=== PATIENT | male | born 1935 | race African-American/Black ===

== ENCOUNTER 2018-06-19 12:15 | Outpatient (CLI) | payer MEDICARE ==
--- NOTE | 2018-06-19 12:53 | RAD ---
LEFT HIP TWO VIEWS: HISTORY: Hip pain. Lumbar stenosis. FINDINGS: Mild degenerative change at the hip. Mild spurring from the femoral head. No fracture or acute abno rmality. IMPRESSION: Mild degenerative change, left hip. POS: [facility]
--- NOTE | 2018-06-19 14:44 | MRI ---
MRI LUMBAR SPINE WITHOUT IV CONTRAST: HISTORY: Left hip pain radiating down to knees for two weeks. TECHNIQUE: Multiplanar, multisequence MRI examination of the lumbar spine is performed. FINDINGS: There are bilateral T2 hyperintense, T1 hypointense foci of the kidneys, up to 3.8 cm on the left and 5.1 cm on the right, statistically renal cysts. Consider follow-up ultrasound in this regard. Generalized disk desiccation changes with ligament and facet hypertrophic changes. Very disk osteophytosis at T12-L1 with very mild central canal and lateral recess narrowing. Very mild lateral recess stenosis at L1-L2. Moderate later recess and mild central canal stenosis at L2-L3 with some mild bilateral foraminal fanta nosis. At L3-L4, moderate central canal and lateral recess stenosis and bilateral foraminal stenosis. At L4-L5, grade 1, 0.9 cm anterolisthesis of L4 on L5, with severe central canal and lateral recess s tenosis, and bilateral foraminal stenosis, as well as what appears to be some superiorly extending fo juan disk extrusion in the left paracentral region, in addition to the overall canal stenosis. At L5-S1, severe disk osteophytosis changes with moderate to severe bilateral foraminal stenosis and mild lateral recess stenosis, with some grade 1, type I endplate changes, in addition to chronic endp late changes. IMPRESSION: 1. Grade 1 anterolisthesis of L4 on L5 with severe central canal, lateral recess, and foraminal sten osis, as well as a focal, superiorly extending, extruded disk herniation in the left paracentral andrey on, with additional compressive changes of the left-sided ventral thecal sac. Bilateral recess steno sis at L5-S1 with some grade 1 endplate changes. 2. Mild to moderate lateral recess, central canal, and foraminal stenosis, at L2-L3 and L3-L4, with very mild changes at T12-L1 and at L1-L2. 3. Bilateral renal T2 hyperintense, T1 hypointense nodular foci, as above, statistically renal cysts . POS: [facility]
== END 2018-06-19 12:16 | disposition home or self-care (01) ==
LOC: SCSMRI 12:15
PROVIDERS: ATTEND Orthopaedic Surgery
DX: M48.061 Spinal stenosis, lumbar region without neurogenic claudication (principal); M16.12 Unilateral primary osteoarthritis, left hip; M43.16 Spondylolisthesis, lumbar region; M51.26 Other intervertebral disc displacement, lumbar region; M48.07 Spinal stenosis, lumbosacral region
CPT/HCPCS: 72148

== ENCOUNTER 2020-02-29 16:59 | Inpatient (IN) | payer MEDICARE ==
--- NOTE | 2020-02-29 18:33 | PDOC.HHP ---
Hospitalist HPI - History of Present Illness History of Present Illness: ADMISSION DATE: 02/29/2020 TIME OF ASSESSMENT: 184 PRIMARY CARE PHYSICIAN: Aman CHIEF COMPLAINT: Confusion, slurred speech HPI: Patient is a very pleasantly confused 84-year-old male with past medical history significant for TIAs, UTIs diabetes, and hypertension. History and HPI obtained from patient's sister as patient is only oriented to person at this time with severe slurred speech. His sister states that a week ago on [place] he had a "episode". He had some confusion and his "mouth twisted". This resolved on its own and so he was not brought into the ER for evaluation at that time. Patient normally able to ambulate without assistance and complete his ADLs but the past 2 days have become more difficult he said to use a walker and a wheelchair today. It required 2 people to assist him to get into the car this morning. They also report that he is had more lip smacking frequently and that his speech would be nonsensical at times and also slurred over the past 2 days. This morning the patient had 2 falls at home one at 3 AM and one at 11 AM. With the first fall this morning they felt he may have had a seizure as his eyes rolled back and he became stiff. They deny him reporting chest pain, shortness of breath, GI or symptoms, contact with sick persons, fever. She does state that he has a history of UTIs which have caused him to hallucinate in the past. Two days ago he also had increased confusion but that resolved before they could bring him to the ER. ED COURSE: Vital Signs: Blood pressure 177/123, pulse 77, respiratory rate 18, temp 98.2 oral, no pain, 95% room air Patient was transferred from [facility]. Over there he had completed a lumbar spine CT, chest x-ray, brain CT, EKG, lab work. Prior to transfer he was also given aspirin 325 milligrams. In the [place] ER a troponin was drawn and no new medications were given. PAST MEDICAL HISTORY: Possible Parkinson's, diabetes mellitus type 2, hypertension, arthritis, anemia PAST SURGICAL HISTORY: No surgical history SOCIAL HISTORY: Patient lives at home with his sister and niece. No alcohol, drug, tobacco use. FAMILY HISTORY: Diabetes mellitus type 2, hypertension ALLERGIES: No known drug allergies CURRENT MEDICATIONS: Lisinopril 20 mg 2 times a day Gabapentin 100 mg once a day at night Pepcid 20 mg once a day Fluoxetine 20 mg twice a day Metformin 500 mg Multivitamin Hospitalist ROS - Review of Systems ROS unobtainable: due to mental status - Exam General Appearance: NAD, awake alert Eye: PERRL ENT - other findings: Abrasion to bridge of nose Neck: supple Heart: RRR, no murmur, no gallops, no rubs, normal peripheral pulses Respiratory: CTAB, no wheezes, no rales, no ronchi, normal chest expansion Gastrointestinal: soft, non-tender, non-distended, normal bowel sounds, no palpable masses Extremities - other findings: Patient not following commands to assess strength Neurological - other findings: Severe dysarthria, minor facial paralysis Musculoskeletal: no muscle wasting Psychiatric: oriented to person Hospitalist Results - Labs Lab results: Troponin I 0.026 ng/mL (< 0.028) 02/29/20 17:47 Laboratory Tests 02/29/20 02/29/20 02/29/20 13:03 13:07 13:07 WBC RBC Hgb Hct Sodium 139 Potassium 3.5 Chloride 101 Carbon Dioxide 25 Anion Gap 17 BUN 26 H Creatinine 1.48 H Estimated GFR (MDRD) 55 Glucose 171 H POC Glucose 158 H Calcium 9.1 Total Bilirubin 0.7 AST 17 ALT 14 Alkaline Phosphatase 46 Troponin I 0.018 Serum Total Protein 7.1 Albumin 3.8 Globulin 3.3 Albumin/Globulin Ratio 1.2 TSH 3rd Generation 02/29/20 02/29/20 02/29/20 13:07 13:07 17:47 WBC 4.8 RBC 3.62 L Hgb 10.4 L Hct 32.0 L Sodium Potassium Chloride Carbon Dioxide Anion Gap BUN Creatinine Estimated GFR (MDRD) Glucose POC Glucose Calcium Total Bilirubin AST ALT Alkaline Phosphatase Troponin I 0.026 Serum Total Protein Albumin Globulin Albumin/Globulin Ratio TSH 3rd Generation 0.4018 - EKG Interpretation EKG: Sinus rhythm with PAC, complete right bundle branch blocknot new 92 bpm - Radiology Interpretation Chest x-ray Status: image reviewed by me, report reviewed by me Additional Comment: Impression: No abnormalities are demonstrated CT scan - head Status: report reviewed by me Additional Comment: Impression: No mass or bleed or other significant acute intracranial process Stable appearing atrophy and chronic white matter ischemic change Other Status: report reviewed by me Additional Comment: Lumbar spine CT Impression: Burst fracture of the L2 vertebral body with no significant retropulsion or involvement of the posterior elements Severe multilevel degenerative changes Atherosclerosis Hospitalist H&P A/P - Plan Plan: Possible TIA versus CVA Neurochecks every 4 hour with NIH every shift Monitor on telemetry Neurology consultation in a.m. Echo and MRI ordered for tomorrow UA ordered and pendingpatient has history of hallucinations with UTI FLP in a.m. Fall resulting in burst fracture of the L2 LSO brace ordered Discussed with neurosurgery, will see patient tomorrow, recommended brace Strict bedrest until cleared by neurosurgery and has brace No numbness or weakness in extremities noted Acute kidney injury Continue IVF Recheck labs in am to evaluate progress Hypertension Allow for permissive hypertension tonight As needed antihypertensives available if necessary Diabetes mellitus type 2 Accu-Cheks AC at bedtime Mild sliding scale insulin Anemia At baselinetakes iron at home per sister Recheck labs in a.m. VTE prophylaxis in place with SCDs CODE STATUS: Full Surrogate decision-maker is his granddaughter, Dianne Patient and plan of care was discussed with Dr. Medina and GRISELDA Barton with neurosurgery
[2020-02-29] MEDS ORDERED: Labetalol HCl 100 MG/20 ML VIAL SLOW IVP PRN (20:16)
[2020-02-29] MEDS ORDERED: HumaLOG 300 UNITS/3 ML VIAL SC PRN (20:16)
[2020-02-29] MEDS ORDERED: Dextrose 5% in Water 1,000 ML IV PRN (20:16)
[2020-02-29] MEDS ORDERED: hydrALAZINE 20 MG/ML VIAL SLOW IVP PRN (20:16)
[2020-02-29] MEDS ORDERED: Dextrose 50% Abboject 50 ML SYRINGE SLOW IVP PRN (20:16)
[2020-02-29] MEDS: Sodium Chloride 0.9% 1,000 ML IV SCH (22:35)
[2020-02-29] MEDS: Atorvastatin Calcium 40 MG TAB PO SCH (22:35)
[2020-02-29 23:44] VITALS: BMI 27.6
[2020-03-01 01:34] LABS: Bacteria/HPF 3+ HPF (None Seen); Bilirubin Negative (Negative); Blood, Urine Negative (Negative); Clarity Clear (Clear); Glucose, Urine (Dipstick) 70 mg/dL (Negative); Ketone, Urine Trace mg/dL (Negative); Leukocyte 25 Leu/uL (Negative); Mucous/LPF Rare LPF (<2+); Nitrite Negative (Negative); Protein, Urine (Dipstick) 50 mg/dL (Neg-Trace); RBC/HPF 0-3 HPF (0-3); Squamous Epithelial 0-3 HPF (0-3); pH, Urine 5.5 (5.0-9.0)
[2020-03-01 01:35] LABS: Urine Culture Reflex Yes Yes
[2020-03-01] MEDS: cefTRIAXone\\ROCEPHIN 1 GM in Sodium Chloride 0.9% 100 ML IVPB SCH (03:16)
[2020-03-01 04:40] LABS: SARS-CoV-2 MS2 Positive; SARS-CoV-2 N Gene Negative; SARS-CoV-2 S Gene Negative; SARS-CoV-2 by NAA Not Detected (NotDetected); SARS-CoV-2 orf1ab Negative
[2020-03-01 05:32] LABS: #Eosinphils 0.1 thou/uL (0.0-0.7); #Lymphocytes 1.4 thou/uL (1.20-3.40); #Monocytes 0.6 thou/uL (0.11-0.59); #Neutrophils 1.6 thou/uL (1.40-6.50); %Basophils 0.8 % (0.0-1.0); %Eosinophils 1.5 % (0.0-10.0); %Lymphocytes 38.3 % (21.0-51.0); %Monocytes 14.8 % (0.0-10.0); %Neutrophils 44.6 % (42.0-75.0); Mean Corpuscular HGB CONC 31.2 g/dL (32.0-36.0); Mean Corpuscular Hemoglobin 28.2 pg (27.0-31.0); Mean Corpuscular Volume 90.2 fL (78.0-98.0); Mean Platelet Volume 9.1 fL (7.4-10.4); Platelet Count 145 thou/uL (130-400); RBC Distribution Width 13.3 % (11.5-14.5); Red Blood Cell (RBC) Count 3.54 mill/uL (4.70-6.10); White Blood Cell (WBC) Count 3.7 thou/uL (4.8-10.8)
[2020-03-01 05:44] LABS: Anion Gap 14 mmol/L (10-20); BUN (Urea Nitrogen) 23 mg/dL (8.4-25.7); Calc. Creatinine Clearance 72 mL/min (70-130); Calcium 8.7 mg/dL (7.8-10.44); Carbon Dioxide 27 mmol/L (23-31); Cardiac Risk 3.2 (Less than 4.5); Chloride 102 mmol/L (98-107); Cholesterol 181 mg/dl (< 200 Desired); Glucose 132 mg/dL (83-110); HDL Cholesterol 56 mg/dL (>60 Neg Risk); LDL Cholesterol, Calculated 109 mg/dL; Potassium 3.2 mmol/L (3.5-5.1); Sodium 140 mmol/L (136-145); Triglycerides 82 mg/dL (Less than 150)
[2020-03-01] MEDS: Lisinopril 20 MG TAB PO SCH ×2 (08:15→21:27)
[2020-03-01] MEDS: Famotidine 20 MG TAB PO SCH ×2 (08:17→21:26)
--- NOTE | 2020-03-01 08:50 | PRG ---
DATE OF SERVICE: 03/01/2020 I personally interviewed and examined the patient, agreed with documentation of Slade De La Cruz PA-C, dated 03/01/2020. Briefly, King Truong is an 84-year-old gentleman with a history of Parkinson disease with intermittent neurological deficits over the past few days eventually prompting an evaluation in the emergency department. One of the episodes involved a fall and he has some back pain. CT examination of lumbar spine showed an L2 fracture for which we were consulted. Overnight, Mr. Truong is more comfortable, horizontal in bed than he is standing. Complains that his back still hurts. Among the electronically recorded vital signs, I do not see any fevers. Blood pressures have been high in the 170s to 180s with systolics in the 80s to 90s. On examination, Mr. Truong has some dysarthria. He has decreased motion of the facial muscles and some cogwheeling rigidity in the extremities. I do not find a sensory level. CT examination of the lumbar spine shows a fracture of the L2 vertebrae which is coronally oriented than it is a fracture that happened in compression. This is not a flexion distraction injury like a Chance fracture. The posterior cortex is intact, so I would not call it as a burst fracture. The canal is well preserved. There is a spondylolisthesis that looks chronic lower down causing some significant stenosis. That chronic problem can be addressed as an outpatient. IMPRESSION: 1. Neurological episodes worrisome for ischemic events. 2. History of Parkinson disease. 3. Fall. 4. L2 fracture. Neurosurgery team was consulted for the L2 fracture. It could be managed in a TLSO brace. The brace does not need to be applied when horizontal in bed, but when he is sitting or standing it can help significantly with pain control and speed the healing of the fracture. We will follow up in our Neurosurgery Clinic. Job ID: [id number]
[2020-03-01] MEDS ORDERED: Aspirin 325 mg Enteric Coated Tablet PO SCH (09:00)
[2020-03-01] MEDS ORDERED: FLU VACC QS2020-21(65YR UP)/PF 240 MCG/0.7 ML SYRINGE IM ONE (09:00)
--- NOTE | 2020-03-01 10:08 | CON ---
DATE OF CONSULTATION: 03/01/2020 CHIEF COMPLAINT: Fall, possible seizure. HISTORY OF PRESENT ILLNESS: Mr. Truong is an 84-year-old gentleman with history of Parkinson's, TIA, hypertension, and diabetes. He is a transfer from [place] for stroke evaluation. It is reported that the patient fell due to unsteady gait 2 days ago, witnessed by his niece, and he has become more confused with slurred speech. CT examination of lumbar spine showed a L2 fracture for which Neurosurgery was consulted. Denies bladder or bowel dysfunction. REVIEW OF SYSTEMS: CONSTITUTIONAL: Denies fever or chills. HEENT: Denies change in vision or hearing. CARDIAC: Denies chest pain, shortness of breath, or diaphoresis. PULMONARY: Denies shortness of breath, cough, or hemoptysis. GI: Denies abdominal pain, nausea, vomiting, diarrhea, or change in stool formation and consistency. : Denies trouble with urination, frequency of urination, or bloody urine. SKIN: Denies skin rash, bruising, bleeding, or skin masses. MUSCULOSKELETAL: As per history of present illness. NEUROLOGICAL: As per history of present illness. PSYCHOLOGICAL: As per history of present illness. PAST MEDICAL HISTORY: Type 2 diabetes, hypertension, arthritis, anemia, Parkinson's. PAST SURGICAL HISTORY: None. SOCIAL HISTORY: Denies tobacco use. Denies alcohol use. Denies illicit drug use. FAMILY HISTORY: Diabetes type 2, hypertension. MEDICATIONS: 1. Metformin 500 mg. 2. Fluoxetine 20 mg. 3. Pepcid 20 mg. 4. Gabapentin 100 mg. 5. Lisinopril 20 mg. ALLERGIES: NO KNOWN DRUG ALLERGIES. PHYSICAL EXAMINATION: VITAL SIGNS: Blood pressure 180/86, pulse 78, temperature 98.5. HEENT: Pupils are equal. Extraocular movements are intact. NECK: Soft, supple. No masses are noted. Range of motion is intact and nonpainful. NEUROLOGIC: Awake, alert, oriented. Memory, attention, fund of knowledge normal. Apparently, cranial nerves are grossly intact. Free active range of motion on all extremities. No focal motor weakness. No reflex asymmetry. Unappreciated facial paralysis. Slight dysarthria. IMAGING: CT of the L-spine indicated a L2 fracture without retropulsion and good alignment. ASSESSMENT: History of Parkinson disease, fall, possible seizure, L2 fracture. PLAN: [facility] were called this morning for a TLSO brace. Brace can be applied when horizontal in bed. When he is sitting or standing, the brace can significantly help with his pain control and speedier healing of the fracture. No neurosurgical intervention at this time. We will have him follow up in 2 to 3 weeks in our clinic and repeat the scan prior to the visit. Job ID: [id number] [facility]
[2020-03-01 11:53] LABS: Bacteria/HPF None Seen HPF (None Seen); Bilirubin Negative (Negative); Blood, Urine 3+ (Negative); Clarity Turbid (Clear); Glucose, Urine (Dipstick) Normal (Negative); Ketone, Urine Negative (Negative); Leukocyte Negative Leu/uL (Negative); Nitrite Negative (Negative); Protein, Urine (Dipstick) 70 mg/dL (Neg-Trace); RBC/HPF Greater than 50 HPF (0-3); Specific Gravity, Urine 1.015 (1.002-1.036); Squamous Epithelial None Seen HPF (0-3); Urobilinogen Normal mg/dL (Less than 2); WBC/HPF None Seen HPF (0-3); pH, Urine 5.5 (5.0-9.0)
[2020-03-01 11:56] LABS: Urine Culture Reflex No No
--- NOTE | 2020-03-01 12:04 | MRI ---
MRI brain noncontrast HISTORY: TIA. FINDINGS: There is no evidence of acute intracranial hemorrhage or infarct. Mild diffuse cortical atr ophy and chronic ischemic small vessel disease within the periventricular white matter. There is no mass effect or shift of midline structures. Visualized paranasal sinuses remain well-aerated. IMPRESSION : No acute abnormalities are demonstrated.
[2020-03-01] MEDS: Sodium Chloride 0.9% 1,000 ML IV SCH (12:16)
--- NOTE | 2020-03-01 12:27 | ULT ---
Carotid duplex sonogram HISTORY: Vascular disease. CVA. FINDINGS: Right: Scattered plaque. Color and spectral Doppler evaluation, peak systolic velocity of 70 cm/s, an d IC to CC ratio 0.9 suggest no hemodynamically significant stenosis within the extracranial right ICA. Antegrade flow within the vertebral artery. Left: Atherosclerotic plaque. Color and spectral Doppler evaluation, peak systolic velocity of 83 cm/ s, and IC to CC ratio of 1.1 suggest no hemodynamically significant stenosis within the extra cranial left ICA. Antegrade flow within the vertebral artery. IMPRESSION : Atherosclerosis. No evidence of significant stenosis.
--- NOTE | 2020-03-01 13:22 | CON ---
NEUROLOGY CONSULTATION DATE OF CONSULTATION: 03/01/2020 REASON FOR CONSULTATION: Altered mental status/slurred speech. HISTORY OF PRESENT ILLNESS: Mr. Truong is an 84-year-old male with history significant for prior TIAs, UTI, diabetes, and hypertension, presented to the emergency room with altered mental status and acute onset dysarthria. History was obtained from review of the medical records and also limited history from the patient. Per sister, a week ago during [place], he has an episode of confusion; during which, his mouth was twisted, but resolved on its own and so, she decided not to bring him to the emergency room for further evaluation since he was doing okay. The patient at baseline is able to ambulate without assistance and was able to complete his activities of daily living until the last 2 days and he is becoming more difficult to use the walker and she noticed some lip-smacking, and his speech was unintelligible and slurred over the past few days and he seems to be confused. He also had a fall 2 times at home yesterday, and there was an episode; during which, his eyes rolled back in his head and he became stiff. There was a concern about seizure. He was brought to the [facility] where the chest x-ray, lumbar spine and brain CT was done, which were unremarkable. He was given aspirin and transferred here for further evaluation. PAST MEDICAL HISTORY: Parkinson disease, diabetes mellitus, hypertension, arthritis, and anemia. PAST SURGICAL HISTORY: No significant past surgical history. SOCIAL HISTORY: The patient lives at home with his sister. There is no documented history of alcohol, drug, or tobacco abuse. FAMILY HISTORY: Diabetes and hypertension. ALLERGIES: NO KNOWN DRUG ALLERGIES. CURRENT MEDICATIONS: 1. Lisinopril 20 mg twice daily. 2. Gabapentin 100 mg once a day at night. 3. Pepcid 20 mg once daily. 4. Fluoxetine 20 mg twice a day. 5. Metformin 500 mg. 6. Multivitamin. REVIEW OF SYSTEMS: Unobtainable due to the patient's mental status. PHYSICAL EXAMINATION: VITAL SIGNS: Blood pressure 177/123, pulse 77, respiratory rate 18. General Appearance: NAD, awake alert Eye: PERRL ENT - other findings: Abrasion to bridge of nose Neck: supple Heart: RRR, no murmur, no gallops, no rubs, normal peripheral pulses Respiratory: CTAB, no wheezes, no rales, no ronchi, normal chest expansion Gastrointestinal: soft, non-tender, non-distended, normal bowel sounds, no palpable masses Extremities - other findings: Patient not following commands to assess strength Neurological - Mental status, the patient is alert and oriented to himself and place his hospital. Speech is slurred. Cranial nerves 2 through 12 intact except 9 and 10, dysarthria. Motor; muscle tone and bulk are normal. Moving all 4 extremities equally and symmetrically. Sensory withdraws to nailbed pressure bilaterally. Cerebellar did not cooperate with the testing. Gait deferred due to patient's safety reason. DATA REVIEWED: I reviewed the labs which were essentially unremarkable. Lab results: Troponin I 0.026 ng/mL (< 0.028) 02/29/20 17:47 Laboratory Tests 02/29/20 02/29/20 02/29/20 13:03 13:07 13:07 WBC RBC Hgb Hct Sodium 139 Potassium 3.5 Chloride 101 Carbon Dioxide 25 Anion Gap 17 BUN 26 H Creatinine 1.48 H Estimated GFR (MDRD) 55 Glucose 171 H POC Glucose 158 H Calcium 9.1 Total Bilirubin 0.7 AST 17 ALT 14 Alkaline Phosphatase 46 Troponin I 0.018 Serum Total Protein 7.1 Albumin 3.8 Globulin 3.3 Albumin/Globulin Ratio 1.2 TSH 3rd Generation 02/29/20 02/29/20 02/29/20 13:07 13:07 17:47 WBC 4.8 RBC 3.62 L Hgb 10.4 L Hct 32.0 L Sodium Potassium Chloride Carbon Dioxide Anion Gap BUN Creatinine Estimated GFR (MDRD) Glucose POC Glucose Calcium Total Bilirubin AST ALT Alkaline Phosphatase Troponin I 0.026 Serum Total Protein Albumin Globulin Albumin/Globulin Ratio TSH 3rd Generation 0.4018 - EKG Interpretation EKG: Sinus rhythm with PAC, complete right bundle branch blocknot new 92 bpm - Radiology Interpretation Chest x-ray Status: image reviewed by me, report reviewed by me Additional Comment: Impression: No abnormalities are demonstrated CT scan - head Status: report reviewed by me Additional Comment: Impression: No mass or bleed or other significant acute intracranial process Stable appearing atrophy and chronic white matter ischemic change Other Status: report reviewed by me Additional Comment: Lumbar spine CT Impression: Burst fracture of the L2 vertebral body with no significant retropulsion or involvement of the posterior elements Severe multilevel degenerative changes Atherosclerosis ASSESSMENT AND PLAN: Mr. King Johnson is an 84-year-old male who was admitted because of acute onset slurred speech and confusion with generalized weakness. Altered mental status seems to be multifactorial secondary to infectious etiology. Intracranial process seems less likely since MRI of the brain reviewed, which was negative for acute intracranial pathology. Consider EEG to rule out cortical irritability or evidence of seizure activity. Neuro checks every 4 hours. Strict control of blood pressure and blood glucose. Continue home medications. Further recommendation depend on the results of the testing. Continue medical management per primary team, PT/OT/speech. DVT prophylaxis. We will continue to follow. Thank you for the consult. Job ID: [id number] MTDD
--- NOTE | 2020-03-01 15:04 | PDOC.EEG ---
Neurology EEG Report - Report Report: This EEG was performed using 24 channel [employer] video EEG machine with 24 disc ashley ctrodes. This was an extended 2 hours 5 minutes of inpatient video EEG recording. Digital analysis of the EEG was done for spike and seizure detection which revealed no abnormalities. Background: The posterior background rhythm was not observed Hyperventilation: Not performed. Photic Stimulation: No significant response. Sleep: No stage change is observed. EEG Diagnosis: Generalized irregular theta activity seen during the reording. Clinical Interpretation: This EEG is consistent with moderate generalized nonspecific cerebral dysfunction.
[2020-03-01] MEDS ORDERED: Acetaminophen 325 MG TAB PO PRN (15:23)
--- NOTE | 2020-03-01 18:09 | PDOC.HOSPP ---
- Subjective Encounter Date: 03/01/20 Encounter Time: 17:48 Subjective: Patient up in bed no complaints - Objective Vital Signs & Weight: Vital Signs (12 hours) Temp Pulse Resp BP BP Pulse Ox 03/01/20 15:33 98.4 F 80 16 150/78 H 96 03/01/20 12:00 99 F 82 16 173/84 H 96 03/01/20 08:11 179/86 H 03/01/20 07:50 97.7 F 77 18 179/86 H 96 Weight Weight 204 lb I&O: 02/29/20 03/01/20 03/02/20 06:59 06:59 06:59 Intake Total 1125 Output Total 550 Balance 575 Result Diagrams: 03/01/20 04:29 03/01/20 04:29 Additional Labs: Accuchecks 03/01/20 03/01/20 03/01/20 16:34 10:48 05:01 POC Glucose 167 H 114 H 121 H 02/29/20 21:19 POC Glucose 139 H Hospitalist ROS - Review of Systems Respiratory: denies: cough, dry, shortness of breath, hemoptysis, SOB with exc ertion, pleuritic pain, sputum, wheezing, other Cardiovascular: denies: chest pain, palpitations, orthopnea, paroxysmal noc. dyspnea, edema, light headedness, other Gastrointestinal: denies: nausea, vomiting, abdominal pain, diarrhea, constipation, melena, hematochezia, other - Medication Medications: Active Medications Generic Name Dose Route Start Last Admin Trade Name Freq PRN Reason Stop Dose Admin Atorvastatin Calcium 40 mg 02/29/20 21:00 02/29/20 22:35 Atorvastatin Calcium 40 Mg Tab PO 40 mg HS DEVAN Administration Famotidine 20 mg 03/01/20 09:00 03/01/20 08:17 Famotidine 20 Mg Tab PO 20 mg BID DEVAN Administration Glipizide 10 mg 03/01/20 09:00 03/01/20 08:16 Glipizide Xl 10 Mg Tablet PO 10 mg BID DEVAN Administration Sodium Chloride 1,000 mls @ 75 mls/hr 02/29/20 20:30 03/01/20 12:16 Normal Saline 0.9% IV 1,000 mls .[id number] DEVAN Administration Ceftriaxone Sodium 1 gm/ 100 mls @ 200 mls/hr 03/01/20 02:30 03/01/20 03:16 Sodium Chloride IVPB 100 mls Q24HR DEVAN Administration Lisinopril 20 mg 03/01/20 09:00 03/01/20 08:15 Lisinopril 20 Mg Tab PO 20 mg BID DEVAN Administration - Exam Neck: negative: supple, symmetric, no JVD, no thyromegaly, no lymphadenopathy, no carotid bruit, JVD Heart: negative: RRR, no murmur, no gallops, no rubs, normal peripheral pulses, irregular, diminshed peripheral pulses, murmur present, II/IV, III/IV Respiratory: negative: CTAB, no wheezes, no rales, no ronchi, normal chest expansion, no tachypnea, normal percussion, rales, rhonchi, tachypneic, wheezes Gastrointestinal: negative: soft, non-tender, non-distended, normal bowel sounds, no palpable masses, no hepatomegaly, no splenomegaly, no bruit, no guarding, no rigidity, tender to palpation, distended, diminished bowl sounds, voluntary guarding Hosp A/P (1) Acute metabolic encephalopathy Code(s): G93.41 - METABOLIC ENCEPHALOPATHY Status: Acute (2) UTI (urinary tract infection) Status: Acute (3) Hematuria Code(s): R31.9 - HEMATURIA, UNSPECIFIED Status: Acute (4) Burst fracture of lumbar vertebra Code(s): S32.001A - STABLE BURST FRACTURE OF UNSP LUMBAR VERTEBRA, INIT Status: Acute - Plan Patient has a L2 burst fracture Ortho recommended brace. MRI brain negative. Continue aspirin and statin for now. We will continue antibiotic. We will start patient on Flomax
[2020-03-01] MEDS: Tamsulosin HCl 0.4 MG CAP PO SCH (21:26)
[2020-03-01] MEDS: Atorvastatin Calcium 40 MG TAB PO SCH (21:26)
[2020-03-01] MEDS ORDERED: Potassium Chloride 20 MEQ TAB PO SCH (22:15)
[2020-03-02] MEDS ORDERED: Magnesium 2 GM/50 ML 2 GM in Premix Bag 1 BAG IVPB SCH (02:30)
[2020-03-02] MEDS: cefTRIAXone\\ROCEPHIN 1 GM in Sodium Chloride 0.9% 100 ML IVPB SCH (02:34)
[2020-03-02] MEDS ORDERED: hydrALAZINE 20 MG/ML VIAL SLOW IVP PRN (03:51)
[2020-03-02] MEDS: Labetalol HCl 100 MG/20 ML VIAL SLOW IVP PRN (04:08)
[2020-03-02 05:28] LABS: #Lymphocytes 1.2 thou/uL (1.20-3.40); #Monocytes 0.4 thou/uL (0.11-0.59); #Neutrophils 2.1 thou/uL (1.40-6.50); %Basophils 0.1 % (0.0-1.0); %Eosinophils 1.2 % (0.0-10.0); %Lymphocytes 31.7 % (21.0-51.0); %Monocytes 10.5 % (0.0-10.0); %Neutrophils 56.4 % (42.0-75.0); Hemoglobin 9.8 g/dL (14.0-18.0); Mean Corpuscular HGB CONC 31.2 g/dL (32.0-36.0); Mean Corpuscular Hemoglobin 27.8 pg (27.0-31.0); Mean Corpuscular Volume 88.9 fL (78.0-98.0); Mean Platelet Volume 8.9 fL (7.4-10.4); Platelet Count 168 thou/uL (130-400); Red Blood Cell (RBC) Count 3.53 mill/uL (4.70-6.10); White Blood Cell (WBC) Count 3.7 thou/uL (4.8-10.8)
[2020-03-02 05:48] LABS: Anion Gap 14 mmol/L (10-20); BUN (Urea Nitrogen) 22 mg/dL (8.4-25.7); Calc. Creatinine Clearance 77 mL/min (70-130); Calcium 8.4 mg/dL (7.8-10.44); Carbon Dioxide 26 mmol/L (23-31); Chloride 104 mmol/L (98-107); Glucose 121 mg/dL (83-110); Potassium 3.2 mmol/L (3.5-5.1); Sodium 141 mmol/L (136-145)
[2020-03-02 06:12] LABS: Thyroid Stimulating Hormone 0.1921 uIU/mL (0.35-4.94)
[2020-03-02] MEDS: Famotidine 20 MG TAB PO SCH ×2 (08:49→21:02)
[2020-03-02] MEDS: Aspirin 81 mg Enteric Coated Tablet PO SCH (08:50)
[2020-03-02] MEDS: Lisinopril 20 MG TAB PO SCH ×2 (08:50→21:02)
[2020-03-02] MEDS: HumaLOG 300 UNITS/3 ML VIAL SC PRN ×2 (12:01→17:19)
--- NOTE | 2020-03-02 12:17 | PDOC.NEUPN ---
- Subjective Encounter Date: 03/02/20 Subjective: No acute events in the last 24 hours. - Objective Vital Signs & Weight: Vital Signs (12 hours) Temp Pulse Pulse Pulse Resp BP BP 03/02/20 11:59 03/02/20 11:28 98.2 F 83 16 03/02/20 09:06 91 92 151/77 H 03/02/20 08:50 151/77 H 03/02/20 07:30 98.4 F 81 15 03/02/20 04:08 87 03/02/20 03:34 99.1 F 87 16 BP BP Pulse Ox 03/02/20 11:59 168/87 H 03/02/20 11:28 173/81 H 97 03/02/20 09:06 142/86 H 03/02/20 08:50 03/02/20 07:30 156/79 H 95 03/02/20 04:08 03/02/20 03:34 194/96 H 94 L Weight Weight 204 lb I&O: 03/01/20 03/02/20 03/03/20 06:59 06:59 06:59 Intake Total 1125 1103 112 Output Total 550 775 Balance 575 328 112 Result Diagrams: 03/02/20 04:57 03/02/20 04:57 Additional Labs: Accuchecks 03/02/20 03/02/20 03/01/20 10:39 04:52 16:34 POC Glucose 193 H 125 H 167 H Radiology Reviewed by me: Yes EKG Reviewed by me: Yes ROS - Review of Systems Constitutional: denies: fever, chills, sweats, weakness, malaise, other ENT: denies: ear pain, ear discharge, nose pain, nose discharge, nose congestion, mouth pain, mouth swelling, throat pain, throat swelling, other Gastrointestinal: denies: nausea, vomiting, abdominal pain, diarrhea, constipation, melena, hematochezia, other - Medication Medications: Active Medications Generic Name Dose Route Start Last Admin Trade Name Freq PRN Reason Stop Dose Admin Aspirin 81 mg 03/02/20 09:00 03/02/20 08:50 Aspirin 81 Mg Enteric Coated Tablet PO 81 mg DAILY DEVAN Administration Atorvastatin Calcium 40 mg 02/29/20 21:00 03/01/20 21:26 Atorvastatin Calcium 40 Mg Tab PO 40 mg HS DEVAN Administration Famotidine 20 mg 03/01/20 09:00 03/02/20 08:49 Famotidine 20 Mg Tab PO 20 mg BID DEVAN Administration Glipizide 10 mg 03/01/20 09:00 03/02/20 08:50 Glipizide Xl 10 Mg Tablet PO 10 mg BID DEVAN Administration Ceftriaxone Sodium 1 gm/ 100 mls @ 200 mls/hr 03/01/20 02:30 03/02/20 02:34 Sodium Chloride IVPB 100 mls Q24HR DEVAN Administration Insulin Human Lispro 0 units 02/29/20 20:16 03/02/20 12:01 Humalog 300 Units/3 Ml Vial SC 2 units .MILD SLIDING SCALE PRN Administration Mild Correctional Scale Insulin Human Lispro 0 units 02/29/20 20:16 03/01/20 21:25 Humalog 300 Units/3 Ml Vial SC 2 unit .BEDTIME SLIDING SC PRN Administration Bedtime Correctional Scale Labetalol HCl 20 mg 03/02/20 03:51 03/02/20 04:08 Labetalol Hcl 100 Mg/20 Ml Vial SLOW IVP 4 ml Q1H PRN Administration SBP Greater Than 180 Lisinopril 20 mg 03/01/20 09:00 03/02/20 08:50 Lisinopril 20 Mg Tab PO 20 mg BID DEVAN Administration Sodium Chloride 10 ml 02/29/20 20:16 03/02/20 08:52 Flush - Normal Saline 10 Ml Syringe IVF 10 ml PRN PRN Administration Saline Flush Tamsulosin HCl 0.4 mg 03/01/20 21:00 03/01/20 21:26 Tamsulosin Hcl 0.4 Mg Cap PO 0.4 mg HS DEVAN Administration - Exam Eye: PERRL ENT: normocephalic atraumatic Neck: supple Respiratory: CTAB Cardiovascular: RRR Gastrointestinal: soft Extremities: no cyanosis Skin: normal turgor Neurological: no focal deficits, no new deficit Musculoskeletal: normal tone, normal strength, no muscle wasting PSYCH: normal affect, normal behavior, oriented to person, oriented to place Results - Labs Result Diagrams: 03/02/20 04:57 03/02/20 04:57 Lab results: WBC 3.7 thou/uL (4.8-10.8) L 03/02/20 04:57 Hgb 9.8 g/dL (14.0-18.0) L 03/02/20 04:57 Hct 31.4 % (42.0-52.0) L 03/02/20 04:57 MCV 88.9 fL (78.0-98.0) 03/02/20 04:57 Plt Count 168 thou/uL (130-400) 03/02/20 04:57 Neutrophils % 56.4 % (42.0-75.0) 03/02/20 04:57 Sodium 141 mmol/L (136-145) 03/02/20 04:57 Potassium 3.2 mmol/L (3.5-5.1) L 03/02/20 04:57 Chloride 104 mmol/L (98-107) 03/02/20 04:57 Carbon Dioxide 26 mmol/L (23-31) 03/02/20 04:57 BUN 22 mg/dL (8.4-25.7) 03/02/20 04:57 Creatinine 0.90 mg/dL (0.7-1.3) 03/02/20 04:57 Glucose 121 mg/dL (83-110) H 03/02/20 04:57 Calcium 8.4 mg/dL (7.8-10.44) 03/02/20 04:57 Troponin I 0.026 ng/mL (< 0.028) 02/29/20 17:47 Urine Ketones Negative mg/dL (Negative) 03/01/20 11:23 Urine Blood 3+ (Negative) A 03/01/20 11:23 Urine Nitrite Negative (Negative) 03/01/20 11:23 Ur Leukocyte Esterase Negative Afshan/uL (Negative) 03/01/20 11:23 Urine RBC Greater than 50 HPF (0-3) A 03/01/20 11:23 Urine WBC None Seen HPF (0-3) 03/01/20 11:23 Ur Squamous Epith Cells None Seen HPF (0-3) 03/01/20 11:23 Urine Bacteria None Seen HPF (None Seen) 03/01/20 11:23 - Radiology Interpretation MRI - head Additional Comment: MRI of the brain did not reveal any acute intracranial pathology PN A/P (1) Acute metabolic encephalopathy Code(s): G93.41 - METABOLIC ENCEPHALOPATHY Status: Acute (2) Burst fracture of lumbar vertebra Code(s): S32.001A - STABLE BURST FRACTURE OF UNSP LUMBAR VERTEBRA, INIT Status: Acute (3) Hematuria Code(s): R31.9 - HEMATURIA, UNSPECIFIED Status: Acute (4) UTI (urinary tract infection) Status: Acute - Plan Daily Plan: PT/OT, speech therapy, DVT proph w/SCDs Mr. Truong is a 84-year-old male who was consulted for altered mental status to rule out stroke. Altered mental status seems to be improved and most likely is multifactorial secondary to infectious and metabolic etiology. The patient does have UTI and also acute kidney injury. Intracranial process seems less likely an MRI of the brain reviewed which was negative for acute intracranial pathology. EEG reviewed which was negative for cortical irritability or any ongoing seizure activity. Neurochecks every 4 hours. 2D echo reviewed which revealed normal ejection fraction with no thrombus or PFO. Carotid Dopplers did not reveal hemodynamically significant stenosis. Strict control of blood pressure and blood glucose PT/OT/speech Continue aspirin and statin for secondary stroke prevention Continue medical management per primary team. Plan discussed with the patient and also with the nursing staff.
[2020-03-02] MEDS ORDERED: Sodium Chloride 0.9% 1,000 ML IV SCH (15:45)
--- NOTE | 2020-03-02 15:47 | PDOC.HOSPP ---
- Subjective Encounter Date: 03/02/20 Encounter Time: 10:30 Subjective: pt up in bed no complains - Objective Vital Signs & Weight: Vital Signs (12 hours) Temp Pulse Pulse Pulse Resp BP BP 03/02/20 11:59 03/02/20 11:28 98.2 F 83 16 03/02/20 09:06 91 92 151/77 H 03/02/20 08:50 151/77 H 03/02/20 07:30 98.4 F 81 15 03/02/20 04:08 87 BP BP Pulse Ox 03/02/20 11:59 168/87 H 03/02/20 11:28 173/81 H 97 03/02/20 09:06 142/86 H 03/02/20 08:50 03/02/20 07:30 156/79 H 95 03/02/20 04:08 Weight Weight 204 lb I&O: 03/01/20 03/02/20 03/03/20 06:59 06:59 06:59 Intake Total 1125 1103 112 Output Total 550 775 Balance 575 328 112 Result Diagrams: 03/02/20 04:57 03/02/20 04:57 Additional Labs: Accuchecks 03/02/20 03/02/20 03/01/20 10:39 04:52 21:23 POC Glucose 193 H 125 H 207 H 03/01/20 16:34 POC Glucose 167 H Hospitalist ROS - Review of Systems Cardiovascular: denies: chest pain, palpitations, orthopnea, paroxysmal noc. dyspnea, edema, light headedness, other Gastrointestinal: denies: nausea, vomiting, abdominal pain, diarrhea, constipation, melena, hematochezia, other Genitourinary: denies: dysuria, frequency, incontinence, hematuria, retention, other - Medication Medications: Active Medications Generic Name Dose Route Start Last Admin Trade Name Freq PRN Reason Stop Dose Admin Aspirin 81 mg 03/02/20 09:00 03/02/20 08:50 Aspirin 81 Mg Enteric Coated Tablet PO 81 mg DAILY DEVAN Administration Atorvastatin Calcium 40 mg 02/29/20 21:00 03/01/20 21:26 Atorvastatin Calcium 40 Mg Tab PO 40 mg HS DEVAN Administration Famotidine 20 mg 03/01/20 09:00 03/02/20 08:49 Famotidine 20 Mg Tab PO 20 mg BID DEVAN Administration Glipizide 10 mg 03/01/20 09:00 03/02/20 08:50 Glipizide Xl 10 Mg Tablet PO 10 mg BID DEVAN Administration Ceftriaxone Sodium 1 gm/ 100 mls @ 200 mls/hr 03/01/20 02:30 03/02/20 02:34 Sodium Chloride IVPB 100 mls Q24HR DEVAN Administration Insulin Human Lispro 0 units 02/29/20 20:16 03/02/20 12:01 Humalog 300 Units/3 Ml Vial SC 2 units .MILD SLIDING SCALE PRN Administration Mild Correctional Scale Insulin Human Lispro 0 units 02/29/20 20:16 03/01/20 21:25 Humalog 300 Units/3 Ml Vial SC 2 unit .BEDTIME SLIDING SC PRN Administration Bedtime Correctional Scale Labetalol HCl 20 mg 03/02/20 03:51 03/02/20 04:08 Labetalol Hcl 100 Mg/20 Ml Vial SLOW IVP 4 ml Q1H PRN Administration SBP Greater Than 180 Lisinopril 20 mg 03/01/20 09:00 03/02/20 08:50 Lisinopril 20 Mg Tab PO 20 mg BID DEVAN Administration Sodium Chloride 10 ml 02/29/20 20:16 03/02/20 08:52 Flush - Normal Saline 10 Ml Syringe IVF 10 ml PRN PRN Administration Saline Flush Tamsulosin HCl 0.4 mg 03/01/20 21:00 03/01/20 21:26 Tamsulosin Hcl 0.4 Mg Cap PO 0.4 mg HS DEVAN Administration - Exam Heart: negative: RRR, no murmur, no gallops, no rubs, normal peripheral pulses, irregular, diminshed peripheral pulses, murmur present, II/IV, III/IV Respiratory: negative: CTAB, no wheezes, no rales, no ronchi, normal chest expansion, no tachypnea, normal percussion, rales, rhonchi, tachypneic, wheezes Gastrointestinal: negative: soft, non-tender, non-distended, normal bowel sounds, no palpable masses, no hepatomegaly, no splenomegaly, no bruit, no guarding, no rigidity, tender to palpation, distended, diminished bowl sounds, voluntary guarding Extremities: 1+ LE edema Hosp A/P (1) Acute metabolic encephalopathy Code(s): G93.41 - METABOLIC ENCEPHALOPATHY Status: Acute (2) UTI (urinary tract infection) Status: Acute (3) Hematuria Code(s): R31.9 - HEMATURIA, UNSPECIFIED Status: Acute (4) Burst fracture of lumbar vertebra Code(s): S32.001A - STABLE BURST FRACTURE OF UNSP LUMBAR VERTEBRA, INIT Status: Acute - Plan Patient has a L2 burst fracture Ortho recommended brace. MRI brain negative. Continue aspirin and statin for now. We will continue antibiotic. We will start patient on Flomax 03/02 pt's family called updated they said no inpatient rehab. pt wants to go home with home health and PT. will give him one liter of ns to see if his urine clears up. I believe his dark urine is from cath trauma ( old blood) . His urine had blood and rbc. He is able to urinate and i do not feel he needs irrigation which would worsen his current situation. His urine cx indicates enterococcus will monitor.
[2020-03-02] MEDS: Tamsulosin HCl 0.4 MG CAP PO SCH (21:02)
[2020-03-02] MEDS: Atorvastatin Calcium 40 MG TAB PO SCH (21:02)
[2020-03-03] MEDS: Labetalol HCl 100 MG/20 ML VIAL SLOW IVP PRN (00:40)
[2020-03-03] MEDS: cefTRIAXone\\ROCEPHIN 1 GM in Sodium Chloride 0.9% 100 ML IVPB SCH (03:12)
[2020-03-03] MEDS: Famotidine 20 MG TAB PO SCH (09:00)
[2020-03-03] MEDS: Aspirin 81 mg Enteric Coated Tablet PO SCH (09:00)
[2020-03-03] MEDS: Lisinopril 20 MG TAB PO SCH (09:01)
[2020-03-03] MEDS ORDERED: Metoprolol Tartrate 25 MG TAB PO SCH ×3 (10:44→21:00)
[2020-03-03 12:00] VITALS: BP 140/77; TEMP 97.6
--- NOTE | 2020-03-03 12:39 | PDOC.DS.DS ---
Provider - Provider Date of Admission: 02/29/20 18:18 Date of Discharge: 03/03/20 Admitting Provider: Erick Mcmullen MD Consultations: Neurology (neruosurgery) Primary Care Physician: Pratik Chapman MD Course - Hospital Course Hospital Course: Patient is a very pleasant 84-year-old male initially presented to the hospital with change in mental status. He had an MRI brain done did not show any stroke. patient's urine indicated 50-75,000 colonies of Enterococcus.Patient was noted to have L2 fracture TLSO brace has been ordered for the patient. Patient's family will be educated on how to apply the brace. Patient will follow up with neurosurgery in 2 to 3 weeks. Patient was walked with physical therapy recommended inpatient rehabilitation however when I spoke with the patient's family they wanted the patient home with home physical therapy. Also patient's blood pressure was mildly elevated and has been kind of labile I did start him on metoprolol however the family did not want me to start him on a beta-rosa m recommended to follow-up with primary and keep a log of blood pressures Resuscitation Status: 02/29/20 20:21 Resuscitation Status Routine Co-Sign Provider: Resuscitation Status: FULL: Full Resuscitation - Labs Lab Results: 03/02/20 04:57 03/02/20 04:57 Abnormal Lab Results - Last 48 hrs 03/02/20 04:57: Potassium 3.2 L 03/02/20 04:57: WBC 3.7 L, RBC 3.53 L, Hgb 9.8 L, Hct 31.4 L, MCHC 31.2 L, Monocytes % 10.5 H 03/02/20 04:57: TSH 3rd Generation 0.1921 L Microbiology - Entire Visit 03/01/20 01:35 Urine Straight Catheter Urine Culture - Preliminary Enterococcus faecalis - Physical Exam Vitals: Vital Signs (12 hours) Temp Pulse Pulse Pulse Resp BP BP 03/03/20 11:59 97.6 F 78 16 03/03/20 10:49 82 78 130/69 03/03/20 09:01 172/90 H 03/03/20 08:00 98.6 F 79 18 03/03/20 04:00 98.2 F 81 14 03/03/20 00:40 82 BP BP Pulse Ox 03/03/20 11:59 140/77 96 03/03/20 10:49 140/77 03/03/20 09:01 03/03/20 08:00 199/96 H 96 03/03/20 04:00 160/83 H 97 03/03/20 00:40 Weight Weight 204 lb Physical Exam: The patient was seen and examined on the day of discharge. Problem - Problem (1) Acute metabolic encephalopathy Code(s): G93.41 - METABOLIC ENCEPHALOPATHY Status: Acute (2) UTI (urinary tract infection) Status: Acute (3) Hematuria Code(s): R31.9 - HEMATURIA, UNSPECIFIED Status: Acute (4) Burst fracture of lumbar vertebra Code(s): S32.001A - STABLE BURST FRACTURE OF UNSP LUMBAR VERTEBRA, INIT Status: Acute Plan - Discharge Medications Prescriptions: Amoxicillin 500 mg PO Q8HR #21 capsule Atorvastatin Calcium 20 mg PO DAILY #30 tablet Aspirin [Ecotrin Low Strength] 81 mg PO DAILY #30 tab Cholecalciferol (Vitamin D3) [Vitamin D] 1,000 unit PO DAILY #30 capsule Home Medications: Medication Instructions Recorded Confirmed Type Famotidine [Pepcid] 20 mg PO BID 03/01/20 03/01/20 History Gabapentin 100 mg PO HS 03/01/20 03/01/20 History Lisinopril 20 mg PO BID 03/01/20 03/01/20 History glipiZIDE [glipiZIDE ER] 10 mg PO BID 03/01/20 03/01/20 History Amoxicillin 500 mg PO Q8HR #21 capsule 03/03/20 Rx Aspirin [Ecotrin Low Strength] 81 mg PO DAILY #30 tab 03/03/20 Rx Atorvastatin Calcium 20 mg PO DAILY #30 tablet 03/03/20 Rx Cholecalciferol (Vitamin D3) 1,000 unit PO DAILY #30 capsule 03/03/20 Rx [Vitamin D] Allergies: No Known Allergies Allergy (Verified 03/01/20 00:06) - Discharge Instructions Discharge Instructions:: please check blood pressure at home and follow up with your primary care doctor. Follow-up with Dr. Burris in 2 to 3 weeks Activity:: Activity as Tolerated Nourishment:: Heart Healthy Diet Therapies:: Home Health, Physical Therapy - Follow up Plan Referrals: Pratik Chapman MD [Primary Care Provider] - Florencia Valentine MD [Active] - Disposition: HOME Quality - Care Measures CORE MEASURES:: N/A
[2020-03-03] MEDS ORDERED: Potassium Chloride 20 MEQ TAB PO SCH (13:00)
== END 2020-03-03 16:27 | disposition home health service (06) | DRG 551 ==
LOC: ERS 16:59 → ERHOLD 17:57 → OBSVTOIN 18:18 → 2SE 20:30
PROVIDERS: ADMIT Internal Medicine; ATTEND Internal Medicine
DX: S32.021A Stable burst fracture of second lumbar vertebra, initial encounter for closed fracture (principal); G93.41 Metabolic encephalopathy; N39.0 Urinary tract infection, site not specified; N17.9 Acute kidney failure, unspecified; Z20.822 Contact with and (suspected) exposure to COVID-19; Z23 Encounter for immunization; R31.9 Hematuria, unspecified; E11.9 Type 2 diabetes mellitus without complications; I10 Essential (primary) hypertension; M19.90 Unspecified osteoarthritis, unspecified site; F41.9 Anxiety disorder, unspecified; G20 Parkinson's disease; B95.2 Enterococcus as the cause of diseases classified elsewhere; W18.30XA Fall on same level, unspecified, initial encounter; D64.9 Anemia, unspecified; Z79.84 Long term (current) use of oral hypoglycemic drugs; Z79.899 Other long term (current) drug therapy
CPT/HCPCS: 36415; 36416; 70551; 80048; 80061; 81001; 82306; 82607; 83735; 84439; 84443; 85025; 87077; 87086; 87186; 87635; 90471; 90662; 90732; 93005; 93306; 93880; 95712; 95816; 95819; 95957; 96374; G0008; G0009; G0378; J0696; J3475; J3490; U0003